=== PATIENT | female | born 1955 | race African-American/Black ===

== ENCOUNTER 2016-06-11 03:15 | Observation (INO) | payer MEDICAID ==
[~2016-06-11] VITALS: Ht 152.4 cm; Wt 95.7 kg
[~2016-06-11 03:15] MED LIST: ASPI-1035 PO; NITR0.4T3 SL
[2016-06-11] MEDS ORDERED: MORPHINE SULFATE 4 MG/ML CPJ (NOT FOR IM USE) IV STA (04:43)
[2016-06-11] MEDS ORDERED: ONDANSETRON HCL 4MG/2ML VIAL IV STA (04:43)
[2016-06-11] MEDS ORDERED: ASPIRIN 81MG TABLET PO ONE (04:45)
[2016-06-11] MEDS ORDERED: NITROGLYCERIN OINT 1GM/INCH UDPKT TD ONE (04:45)
[2016-06-11 04:59] LABS: EOSINOPHILS % 1.5 % (0.0-5.0); HEMATOCRIT. 34.4 % (36.0-48.0); HEMOGLOBIN. 11.2 g/dL (12.0-16.0); LYMPHOCYTES % 49.2 % (20.0-50.0); MEAN CORPUSCULAR HGB CONC 32.4 g/dL (31.0-37.0); MEAN CORPUSCULAR VOLUME 86.2 fL (81.0-99.0); MEAN PLATELET VOLUME 7.5 fl (7.4-10.4); MONOCYTES % 5.4 % (2.0-8.0); NEUTROPHILS % 42.9 % (40.0-76.0); PLATELET 216 x1000/uL (130-400); RED BLOOD CELL COUNT 3.99 mill/uL (4.2-5.4); RED CELL DISTRIBUTION WIDTH 14.6 % (11.6-14.6); WHITE BLOOD COUNT 6.1 x1000/uL (4.5-11.0)
[2016-06-11 05:14] LABS: ALANINE AMINOTRANSFERASE 15 IU/L (13-61); ALBUMIN 3.5 g/dL (3.4-5.0); ANION GAP 10; CALCIUM 8.2 mg/dL (8.5-10.1); CARBON DIOXIDE 31 mEq/L (21-32); CHLORIDE 104 mEq/L (98-107); INDEX HEMOLYSI 1 (1-3); INDEX ICTERIC 1 (1-4); INDEX LIPEMIC 1 (1-3); TROPONIN I < 0.02 ng/mL (0.00-0.04); UREA NITROGEN BLOOD 12 mg/dL (7-21); eGFR > 60 mL/min (>60)
[2016-06-11 08:40] VITALS: BP 94/64
[2016-06-11 10:00] VITALS: BP 94/64
[2016-06-11] MEDS ORDERED: HYDR-523 PO (11:54)
[2016-06-11 12:00] VITALS: BP 98/68
[2016-06-11] MEDS ORDERED: ALBU6.7H INH (12:00)
[2016-06-11 16:00] VITALS: BP 111/67
[2016-06-11] MEDS ORDERED: MORPHINE SULFATE 2 MG/ML CPJ (NOT FOR IM USE) IV PRN (17:30)
[2016-06-11] MEDS ORDERED: ACETAMINOPHEN 650MG/20.3ML UDC PO PRN (17:30)
[2016-06-11] MEDS ORDERED: SODIUM CHLORIDE 0.9% 1,000 ML IV SCH (18:00)
[2016-06-11 20:00] VITALS: BP 103/65
[2016-06-11] MEDS ORDERED: LEVOFLOXACIN 500MG PREMIX 100 ML IV SCH (20:00)
[2016-06-11] MEDS: IPRATROPIUM/ALBUTEROL 0.5-3(2.5)MG/3ML NEB HHN SCH (20:19)
[2016-06-11] MEDS: PANTOPRAZOLE 40MG DR TABLET PO SCH (21:40)
[2016-06-11] MEDS ORDERED: POTASSIUM CHLORIDE 20MEQ TABLET SR PO NR (21:45)
[2016-06-11] MEDS: ENOXAPARIN 30MG/0.3ML SYR SUBCUT SCH (22:06)
[2016-06-12] VITALS: BP 100/68
[2016-06-12] MEDS: IPRATROPIUM/ALBUTEROL 0.5-3(2.5)MG/3ML NEB HHN SCH ×3 (00:27→08:29)
[2016-06-12 03:05] LABS: *AMPHETAMINES SCREEN URINE NEGATIVE (NEGATIVE); *BARBITURATES SCREEN URINE NEGATIVE (NEGATIVE); *BENZODIAZEPINES SCREEN URINE NEGATIVE (NEGATIVE); *COCAINE SCREEN URINE NEGATIVE (NEGATIVE); CANNABINOID URINE SCREEN NEGATIVE (NEGATIVE); ECSTASY MDMA SCREEN URINE NEGATIVE (NEGATIVE); METHADONE URINE SCREEN NEGATIVE (NEGATIVE); OPIATES URINE SCREEN PRESUMTIVE POSITIVE (NEGATIVE); PHENCYCLIDINE URINE SCREEN NEGATIVE (NEGATIVE)
[2016-06-12 04:00] VITALS: BP 105/60
[2016-06-12] MEDS: PANTOPRAZOLE 40MG DR TABLET PO SCH (06:04)
[2016-06-12 06:10] LABS: ALANINE AMINOTRANSFERASE 12 IU/L (13-61); ALBUMIN 2.9 g/dL (3.4-5.0); ANION GAP 15; CALCIUM 8.1 mg/dL (8.5-10.1); CARBON DIOXIDE 26 mEq/L (21-32); CHLORIDE 107 mEq/L (98-107); INDEX HEMOLYSI 1 (1-3); INDEX ICTERIC 1 (1-4); INDEX LIPEMIC 1 (1-3); TRIGLYCERIDE 44 mg/dL (0-150); UREA NITROGEN BLOOD 9 mg/dL (7-21); eGFR > 60 mL/min (>60)
[2016-06-12 06:19] LABS: HDL CHOLESTEROL 98 mg/dL (40-59); LDL CHOLESTEROL 75 mg/dL (5-100)
[2016-06-12 08:00] VITALS: BP 91/43
[2016-06-12] MEDS ORDERED: PANTOPRAZOLE SODIUM 40 MG/VIAL IV SCH (09:00)
[2016-06-12] MEDS ORDERED: ASPIRIN 81MG TABLET PO SCH (09:00)
[2016-06-12] MEDS: ENOXAPARIN 30MG/0.3ML SYR SUBCUT SCH (09:19)
[2016-06-12 09:56] VITALS: BP 98/50
== END 2016-06-12 10:38 | disposition home or self-care (01) ==
LOC: ER 03:38 → 5WST 05:12 → INTOOBSV 05:12
PROVIDERS: ADMIT Internal Medicine; ATTEND Internal Medicine
DX: R07.89 Other chest pain (principal); I10 Essential (primary) hypertension; E66.9 Obesity, unspecified; I25.119 Atherosclerotic heart disease of native coronary artery with unspecified angina pectoris; I24.9 Acute ischemic heart disease, unspecified; J45.909 Unspecified asthma, uncomplicated; K21.9 Gastro-esophageal reflux disease without esophagitis; Z86.73 Personal history of transient ischemic attack (TIA), and cerebral infarction without residual deficits; Z98.84 Bariatric surgery status
CPT/HCPCS: 36415; 71010; 80053; 80061; 80305; 84443; 84484; 85025; 93005; 96361; 96365; 96372; 96375; 96376; 99285; G0378; J1650; J1956; J2270; J2405; J7030; 96374; J7620

== ENCOUNTER 2018-04-20 10:59 | Inpatient (IN) | payer MEDICAID, MEDICARE ==
[~2018-04-20] VITALS: Ht 152.4 cm; Wt 83.9 kg
[~2018-04-20 10:59] MED LIST changes: +ALBU6.7H INH; -ASPI-1035 PO; +ASPI-1159 PO; +HYDR-523 PO; -NITR0.4T3 SL; +NITR0.4T49 SL
[2018-04-20] MEDS ORDERED: ASPIRIN 325MG TABLET PO ONE (12:00)
[2018-04-20 12:54] LABS: BASOPHILS % 0.3 % (0.0-2.0); EOSINOPHILS % 1.5 % (0.0-5.0); HEMATOCRIT. 33.6 % (36.0-48.0); HEMOGLOBIN. 10.9 g/dL (12.0-16.0); LYMPHOCYTES % 44.1 % (20.0-50.0); MEAN CORPUSCULAR HEMOGLOBIN 28.1 pg (28.0-32.0); MEAN CORPUSCULAR VOLUME 86.7 fL (81.0-99.0); MONOCYTES % 6.7 % (2.0-8.0); NEUTROPHILS % 47.4 % (40.0-76.0); PLATELET 200 x1000/uL (130-400); RED BLOOD CELL COUNT 3.88 mill/uL (4.2-5.4); RED CELL DISTRIBUTION WIDTH 14.8 % (11.6-14.6)
[2018-04-20 12:56] LABS: CHLORIDE 107 mEq/L (98-107)
[2018-04-20 13:00] LABS: PARTIAL THROMBOPLASTIN TIME 29.3 sec (23.4-31.0); PROTHROMBIN TIME 10.1 sec (9.1-11.1)
[2018-04-20] MEDS: NITROGLYCERIN 0.4MG TABLET SL SL PRN ×3 (15:26→16:32)
[2018-04-20 15:41] LABS: CLARITY URINE CLEAR (CLEAR); COLOR URINE YELLOW (YELLOW); KETONES URINE NEGATIVE (NEGATIVE); LEUKOCYTE ESTERASE URINE 2+ (NEGATIVE); NITRITE URINE NEGATIVE (NEGATIVE); OCCULT BLOOD URINE NEGATIVE (NEGATIVE); PROTEIN URINE NEGATIVE (NEGATIVE); SPECIFIC GRAVITY URINE 1.019 (1.005-1.030)
[2018-04-20] MEDS ORDERED: GUAIFENESIN 200MG/10ML SUGAR FREE UDC PO PRN (16:15)
[2018-04-20] MEDS ORDERED: NITROGLYCERIN 0.4MG TABLET SL SL PRN (16:15)
[2018-04-20] MEDS ORDERED: NA PHOS,M-B/NA PHOS,DI-BA ENEMA 118ML PR PRN (16:15)
[2018-04-20] MEDS ORDERED: LORAZEPAM 0.5MG TABLET PO PRN (16:15)
[2018-04-20] MEDS ORDERED: DOCUSATE SODIUM 100MG CAPSULE PO PRN (16:15)
[2018-04-20] MEDS ORDERED: MAGNESIUM/ALUMINUM HYDROXIDE/SIMETHICONE 30ML UDC PO PRN (16:15)
[2018-04-20] MEDS ORDERED: ACETAMINOPHEN 325MG TABLET PO PRN (16:15)
[2018-04-20] MEDS ORDERED: HYDROCODONE/ACETAMINOPHEN 5/325MG TABLET PO PRN (16:15)
[2018-04-20] MEDS ORDERED: CLONIDINE 0.1MG TABLET PO PRN (16:15)
[2018-04-20] MEDS ORDERED: ONDANSETRON HCL 4MG/2ML INJ IV PRN (16:15)
[2018-04-20] MEDS ORDERED: DIPHENHYDRAMINE 50MG/ML VIAL IV PRN (16:15)
[2018-04-20] MEDS ORDERED: IPRATROPIUM/ALBUTEROL 0.5-3(2.5)MG/3ML NEB INH PRN (16:15)
[2018-04-20] MEDS ORDERED: ACETAMINOPHEN 650MG SUPP PR PRN (16:15)
[2018-04-20] MEDS ORDERED: POTASSIUM CHLORIDE 20MEQ TABLET SR PO NR (19:45)
[2018-04-20 22:15] VITALS: BP 123/67
[2018-04-20 22:23] VITALS: BP 123/67
[2018-04-21] MEDS ORDERED: DEXT 5%/0.45% NACL 1000ML 1,000 ML IV SCH
[2018-04-21] MEDS ORDERED: DIAZ5TAB PO (00:03)
[2018-04-21] MEDS ORDERED: CARI250T PO (00:03)
[2018-04-21 02:00] LABS: CREATINE KINASE 107 IU/L (26-192)
[2018-04-21 02:01] LABS: CREATINE KINASE MB FRACTION < 1.0 ng/mL (0.5-3.6)
[2018-04-21 04:00] VITALS: BP 117/64
[2018-04-21 07:02] LABS: BASOPHILS % 0.3 % (0.0-2.0); HEMATOCRIT. 32.5 % (36.0-48.0); HEMOGLOBIN. 10.7 g/dL (12.0-16.0); LYMPHOCYTES % 53.3 % (20.0-50.0); MEAN CORPUSCULAR HEMOGLOBIN 28.5 pg (28.0-32.0); MEAN CORPUSCULAR VOLUME 86.7 fL (81.0-99.0); MEAN PLATELET VOLUME 8.2 fl (7.4-10.4); NEUTROPHILS % 34.4 % (40.0-76.0); PLATELET 190 x1000/uL (130-400); RED BLOOD CELL COUNT 3.74 mill/uL (4.2-5.4); RED CELL DISTRIBUTION WIDTH 14.6 % (11.6-14.6)
[2018-04-21 08:00] VITALS: BP 135/79
[2018-04-21 08:03] LABS: CHLORIDE 108 mEq/L (98-107)
[2018-04-21 08:26] LABS: CREATINE KINASE 103 IU/L (26-192); HDL CHOLESTEROL 98 mg/dL (40-59)
[2018-04-21 08:27] LABS: LDL CHOLESTEROL 90 mg/dL (5-100)
[2018-04-21 08:32] LABS: CREATINE KINASE MB FRACTION < 1.0 ng/mL (0.5-3.6)
[2018-04-21] MEDS ORDERED: ASPIRIN 81MG EC TABLET PO SCH (09:00)
[2018-04-21] MEDS ORDERED: AMLODIPINE 5MG TABLET PO SCH (09:00)
[2018-04-21] MEDS ORDERED: ENOXAPARIN 40MG/0.4ML SYR SUBCUT SCH (09:00)
[2018-04-21] MEDS ORDERED: REGADENOSON 0.4 MG/5 ML IV ONE ×2 (11:45→13:21)
[2018-04-21 12:00] VITALS: BP 119/65
[2018-04-21 16:00] VITALS: BP 116/69
[2018-04-21 16:41] VITALS: BP 119/72
== END 2018-04-21 18:26 | disposition home or self-care (01) | DRG 198 ==
LOC: ER 11:15 → 5WST 15:07 → SUPCPDRO 15:18 → EDBEDREQ 15:18 → EDBEDREQTM 15:18 → ENRESERV 21:37
PROVIDERS: ADMIT Internal Medicine; ATTEND Internal Medicine
DX: I25.119 Atherosclerotic heart disease of native coronary artery with unspecified angina pectoris (principal); J45.901 Unspecified asthma with (acute) exacerbation; D64.9 Anemia, unspecified; E66.9 Obesity, unspecified; M54.9 Dorsalgia, unspecified; N39.0 Urinary tract infection, site not specified; E78.5 Hyperlipidemia, unspecified; E87.6 Hypokalemia; G89.29 Other chronic pain; I10 Essential (primary) hypertension; Z68.36 Body mass index [BMI] 36.0-36.9, adult; Z86.73 Personal history of transient ischemic attack (TIA), and cerebral infarction without residual deficits; Z79.82 Long term (current) use of aspirin; Z79.899 Other long term (current) drug therapy; Z98.891 History of uterine scar from previous surgery
CPT/HCPCS: 36415; 71045; 78452; 80061; 82550; 82553; 83036; 83880; 84443; 84484; 85379; 93005; 93017; 93306; 93970; 97116; 97162; 99285; A9500; J1650; J2785

== ENCOUNTER 2020-06-09 04:45 | Emergency (ER) | payer MEDICAID, MEDICARE ==
[~2020-06-09] VITALS: Ht 160 cm; Wt 79.0 kg
[~2020-06-09 04:45] MED LIST changes: -ALBU6.7H INH; +ALBU6.7H11 INH; -ASPI-1159 PO; +ASPI-1497 PO; +CARI250T PO; +DIAZ5TAB PO
[2020-06-09] MEDS ORDERED: HYDROCODONE/ACETAMINOPHEN 5/325MG TABLET PO ONE (05:15)
[2020-06-09] MEDS ORDERED: IBUP-2028 MT (06:40)
[2020-06-09 06:51] VITALS: BP 121/8
== END 2020-06-09 07:00 | disposition home or self-care (01) ==
LOC: ER 04:45
DX: M25.561 Pain in right knee (principal); I10 Essential (primary) hypertension; I25.10 Atherosclerotic heart disease of native coronary artery without angina pectoris; Z86.73 Personal history of transient ischemic attack (TIA), and cerebral infarction without residual deficits; Z87.828 Personal history of other (healed) physical injury and trauma; Z98.890 Other specified postprocedural states; Z79.82 Long term (current) use of aspirin
CPT/HCPCS: 73562; 99283

== ENCOUNTER 2020-11-20 17:32 | Emergency (ER) | payer MEDICAID ==
[~2020-11-20] VITALS: Ht 152.4 cm; Wt 85.0 kg
[~2020-11-20 17:32] MED LIST changes: +IBUP-2028 MT
[2020-11-20 20:02] LABS: CLARITY URINE CLOUDY (CLEAR); COLOR URINE YELLOW (YELLOW); KETONES URINE TRACE (NEGATIVE); LEUKOCYTE ESTERASE URINE 3+ (NEGATIVE); NITRITE URINE NEGATIVE (NEGATIVE); OCCULT BLOOD URINE 2+ (NEGATIVE); PROTEIN URINE TRACE (NEGATIVE); SPECIFIC GRAVITY URINE 1.022 (1.005-1.030)
[2020-11-20 20:22] LABS: *AMPHETAMINES SCREEN URINE NEGATIVE (NEGATIVE)
[2020-11-20 20:23] LABS: *BARBITURATES SCREEN URINE NEGATIVE (NEGATIVE); *BENZODIAZEPINES SCREEN URINE NEGATIVE (NEGATIVE); *COCAINE SCREEN URINE NEGATIVE (NEGATIVE); METHADONE URINE SCREEN NEGATIVE (NEGATIVE); OPIATES URINE SCREEN NEGATIVE (NEGATIVE); PHENCYCLIDINE URINE SCREEN NEGATIVE (NEGATIVE)
[2020-11-20 20:24] LABS: CANNABINOID URINE SCREEN NEGATIVE (NEGATIVE)
[2020-11-20] MEDS ORDERED: NITROFURANTOIN 100MG M/M CAPSULE PO ONE (20:30)
[2020-11-20] MEDS ORDERED: BACL-141 MT (20:52)
[2020-11-20] MEDS ORDERED: NITR-87 MT (20:52)
[2020-11-20 21:03] VITALS: BP 141/84
[2020-11-20] MEDS ORDERED: DICL100G31 TP (21:05)
== END 2020-11-20 21:03 | disposition home or self-care (01) ==
LOC: ER 17:32
DX: R25.2 Cramp and spasm (principal); N39.0 Urinary tract infection, site not specified; I11.9 Hypertensive heart disease without heart failure; J45.909 Unspecified asthma, uncomplicated; Z86.73 Personal history of transient ischemic attack (TIA), and cerebral infarction without residual deficits; Z98.84 Bariatric surgery status; Z79.82 Long term (current) use of aspirin
CPT/HCPCS: 80305; 81003; 87077; 87186; 93970; 99283

== ENCOUNTER 2021-11-03 01:24 | Emergency (ER) | payer MEDICAID ==
[~2021-11-03] VITALS: Ht 152.4 cm; Wt 85.9 kg
[~2021-11-03 01:24] MED LIST changes: -ALBU6.7H11 INH; +ALBU6.7H15 INH; +BACL-141 MT; +DICL100G31 TP; +NITR-87 MT
[2021-11-03 01:33] VITALS: BP 143/76
[2021-11-03 04:39] LABS: BASOPHILS % 0.3 % (0.0-2.0); EOSINOPHILS % 1.9 % (0.0-5.0); HEMOGLOBIN. 11.4 g/dL (12.0-16.0); LYMPHOCYTES % 43.5 % (20.0-50.0); MEAN CORPUSCULAR HEMOGLOBIN 27.8 pg (28.0-32.0); MEAN CORPUSCULAR VOLUME 85.6 fL (81.0-99.0); NEUTROPHILS % 46.3 % (40.0-76.0); PLATELET 242 x1000/uL (130-400); RED BLOOD CELL COUNT 4.08 mill/uL (4.2-5.4); RED CELL DISTRIBUTION WIDTH 15.2 % (11.6-14.6)
[2021-11-03 05:01] LABS: CHLORIDE 106 mEq/L (98-107)
[2021-11-03] MEDS ORDERED: ACET-2708 MT (06:26)
== END 2021-11-03 06:33 | disposition home or self-care (01) ==
LOC: ER 01:24
DX: M79.605 Pain in left leg (principal); I10 Essential (primary) hypertension; J45.909 Unspecified asthma, uncomplicated; Z79.82 Long term (current) use of aspirin; Z86.73 Personal history of transient ischemic attack (TIA), and cerebral infarction without residual deficits; Z98.890 Other specified postprocedural states; Z79.899 Other long term (current) drug therapy
CPT/HCPCS: 36415; 71045; 80048; 83880; 84484; 85025; 93005; 93970; 99285

== ENCOUNTER 2023-10-05 22:32 | Inpatient (IN) | payer MEDICARE, MEDICAID ==
[~2023-10-05] VITALS: Ht 152.4 cm; Wt 86.2 kg
[~2023-10-05 22:32] MED LIST changes: +ACET-2708 MT; +AMLO10TA80 PO; +CLOP-31 PO; -DICL100G31 TP; +DICL100G58 TP; +LIP40 PO
[2023-10-05] MEDS ORDERED: CLONIDINE 0.1MG TABLET PO PRN (22:45)
[2023-10-05] MEDS ORDERED: ACETAMINOPHEN 325MG TABLET PO PRN (22:45)
[2023-10-05 23:00] VITALS: BP 112/79; PULSE 100; RESP 18; TEMP 96.9
[2023-10-06 06:00] VITALS: BP 116/71; PULSE 74; RESP 18; TEMP 97.6
[2023-10-06 06:42] LABS: CARBON DIOXIDE 24 mEq/L (21-32); CHLORIDE 102 mEq/L (98-107); POTASSIUM 3.6 mEq/L (3.5-5.1); SODIUM 135 mEq/L (136-145)
[2023-10-06 06:43] LABS: CALCIUM 9.3 mg/dL (8.7-10.4)
[2023-10-06 06:47] LABS: CREATININE 0.8 mg/dL (0.6-1.0); GLUCOSE 96 mg/dL (70-105)
[2023-10-06 06:48] LABS: UREA NITROGEN BLOOD 16 mg/dL (9-23)
[2023-10-06 06:49] LABS: ALANINE AMINOTRANSFERASE 46 IU/L (10-49); ALBUMIN 4.1 g/dL (3.2-4.8); ASPARTATE AMINOTRANSFERASE 91 IU/L (<34)
[2023-10-06 06:50] LABS: BILIRUBIN TOTAL 0.6 mg/dL (0.1-1.0); PROTEIN TOTAL 7.4 g/dL (6.0-8.3)
[2023-10-06 07:00] LABS: BASOPHILS % 0.4 % (0.0-2.0); HEMATOCRIT. 37.2 % (36.0-48.0); HEMOGLOBIN. 12.7 g/dL (12.0-16.0); LYMPHOCYTES % 33.5 % (20.0-50.0); MEAN CORPUSCULAR HEMOGLOBIN 29.4 pg (28.0-32.0); MEAN CORPUSCULAR HGB CONC 34.2 g/dL (31.0-37.0); MEAN CORPUSCULAR VOLUME 85.9 fL (81.0-99.0); MEAN PLATELET VOLUME 8.2 fl (7.4-10.4); MONOCYTES % 11.9 % (2.0-8.0); NEUTROPHILS % 52.2 % (40.0-76.0); PLATELET 222 x1000/uL (130-400); RED BLOOD CELL COUNT 4.33 mill/uL (4.2-5.4); RED CELL DISTRIBUTION WIDTH 14.6 % (11.6-14.6)
[2023-10-06 08:00] VITALS: BP 123/76; PULSE 89; RESP 18; TEMP 97.3
[2023-10-06] MEDS: GUAIFENESIN 600MG ER TABLET PO SCH (08:56)
[2023-10-06] MEDS: ASPIRIN 81MG TABLET PO SCH (08:56)
[2023-10-06] MEDS: CLOPIDOGREL 75MG TABLET PO SCH (08:57)
[2023-10-06] MEDS: AMLODIPINE 10MG TABLET PO SCH (08:57)
[2023-10-06] MEDS ORDERED: ENOXAPARIN 40MG/0.4ML SYR SUBCUT SCH (09:00)
[2023-10-06 20:00] VITALS: BP 120/73; PULSE 67; RESP 18; TEMP 100
[2023-10-06] MEDS: ATORVASTATIN CALCIUM 40MG TABLET PO SCH (20:55)
[2023-10-07] MEDS: CALCIUM CARBONATE 500MG TABLET CHEW PO PRN (00:24)
[2023-10-07 08:00] VITALS: BP 111/87; PULSE 100; RESP 18; TEMP 98.6
[2023-10-07] MEDS: SULFACETAMIDE SODIUM 10% OPHTH DROPS 15ML LEFTEYE SCH (16:23)
[2023-10-07 20:00] VITALS: BP 116/77; PULSE 104; RESP 19; TEMP 97.5
[2023-10-08 07:42] VITALS: BP 135/84; PULSE 88; RESP 18; TEMP 98.3
[2023-10-08 20:00] VITALS: BP 110/74; PULSE 98; RESP 18; TEMP 97.2
[2023-10-09 08:00] VITALS: BP 110/74; PULSE 98; RESP 18; TEMP 97.2
[2023-10-09 20:00] VITALS: BP_SYST 119; BP_SYST 148; BP_DIAS 82; BP_DIAS 89; PULSE 73; PULSE 80; RESP 18; RESP 19; TEMP 97.3; TEMP 98.4
[2023-10-10 06:45] LABS: BASOPHILS % 0.5 % (0.0-2.0); EOSINOPHILS % 2.3 % (0.0-5.0); HEMATOCRIT. 36.6 % (36.0-48.0); HEMOGLOBIN. 11.8 g/dL (12.0-16.0); LYMPHOCYTES % 36.3 % (20.0-50.0); MEAN CORPUSCULAR HGB CONC 32.2 g/dL (31.0-37.0); MEAN CORPUSCULAR VOLUME 86.8 fL (81.0-99.0); MEAN PLATELET VOLUME 8.1 fl (7.4-10.4); MONOCYTES % 9.8 % (2.0-8.0); NEUTROPHILS % 51.1 % (40.0-76.0); PLATELET 259 x1000/uL (130-400); RED BLOOD CELL COUNT 4.22 mill/uL (4.2-5.4); RED CELL DISTRIBUTION WIDTH 14.2 % (11.6-14.6); WHITE BLOOD COUNT 5.9 x1000/uL (4.5-11.0)
[2023-10-10 06:47] LABS: CARBON DIOXIDE 24 mEq/L (21-32); CHLORIDE 106 mEq/L (98-107); POTASSIUM 3.9 mEq/L (3.5-5.1); SODIUM 138 mEq/L (136-145)
[2023-10-10 06:48] LABS: CALCIUM 9.3 mg/dL (8.7-10.4)
[2023-10-10 06:53] LABS: CREATININE 0.7 mg/dL (0.6-1.0); GLUCOSE 93 mg/dL (70-105); UREA NITROGEN BLOOD 15 mg/dL (9-23)
[2023-10-10 08:00] VITALS: BP 107/66; PULSE 91; RESP 18; TEMP 97.7
[2023-10-10] MEDS: DOCUSATE SODIUM 100MG CAPSULE PO PRN (08:24)
[2023-10-10] MEDS: ACETAMINOPHEN 325MG TABLET PO PRN (08:24)
[2023-10-10 20:00] VITALS: BP 100/68; PULSE 93; RESP 20; TEMP 97.2
[2023-10-11 08:00] VITALS: BP 112/75; PULSE 89; RESP 18; TEMP 97.7
[2023-10-11 20:00] VITALS: BP 123/72; PULSE 88; RESP 20; TEMP 94.4
[2023-10-12 08:00] VITALS: BP 111/69; PULSE 89; RESP 20; TEMP 98.5
[2023-10-12 20:00] VITALS: BP 120/70; PULSE 98; RESP 20; TEMP 97.7
[2023-10-13 08:00] VITALS: BP 115/70; PULSE 84; RESP 20; TEMP 97.3
[2023-10-13 20:00] VITALS: BP 122/86; PULSE 96; RESP 18; TEMP 99
[2023-10-14 08:00] VITALS: BP 103/63; PULSE 82; RESP 16; TEMP 97.4
[2023-10-14 20:00] VITALS: BP 116/75; PULSE 90; RESP 18; TEMP 98.1
[2023-10-15 08:00] VITALS: BP 127/79; PULSE 87; RESP 18; TEMP 96.5
[2023-10-15] MEDS ORDERED: CLOP-31 PO (12:53)
[2023-10-15 13:25] VITALS: BP 127/79; PULSE 87; TEMP 96.5; O2SAT 98
== END 2023-10-15 13:55 | disposition home health service (06) | DRG 65 ==
PROVIDERS: ADMIT Psychiatry & Neurology Neurology; ATTEND Internal Medicine
DX: I63.9 Cerebral infarction, unspecified (principal); I69.354 Hemiplegia and hemiparesis following cerebral infarction affecting left non-dominant side; I10 Essential (primary) hypertension; D64.9 Anemia, unspecified; E66.01 Morbid (severe) obesity due to excess calories; Z68.37 Body mass index [BMI] 37.0-37.9, adult; K30 Functional dyspepsia; M13.88 Other specified arthritis, other site; F06.34 Mood disorder due to known physiological condition with mixed features; R26.2 Difficulty in walking, not elsewhere classified; J40 Bronchitis, not specified as acute or chronic; K59.00 Constipation, unspecified; I65.01 Occlusion and stenosis of right vertebral artery; Z79.82 Long term (current) use of aspirin; Z79.899 Other long term (current) drug therapy; Z91.81 History of falling; Z79.02 Long term (current) use of antithrombotics/antiplatelets; Z79.01 Long term (current) use of anticoagulants
CPT/HCPCS: 36415; 80048; 80053; 85025; 92523; 92610; 97110; 97112; 97116; 97150; 97162; 97166; 97530; 97535

== ENCOUNTER 2024-03-30 20:49 | Emergency (ER) | payer MEDICARE, MEDICAID ==
[~2024-03-30] VITALS: Ht 152.4 cm; Wt 96.0 kg
[~2024-03-30 20:49] MED LIST changes: -ACET-2708 MT; -BACL-141 MT; -DIAZ5TAB PO; -HYDR-523 PO; -IBUP-2028 MT; -NITR-87 MT
[2024-03-30 20:52] VITALS: O2SAT 99
[2024-03-30 20:55] VITALS: BP 153/97; PULSE 97; RESP 16; O2SAT 99
[2024-03-31] MEDS ORDERED: ACET-2708 MT (02:39)
[2024-03-31 03:20] VITALS: TEMP 98.3
[2024-03-31] MEDS: ACETAMINOPHEN 500MG TABLET PO ONE (03:20)
[2024-03-31] MEDS: ACETAMINOPHEN 500MG TABLET PO NR (03:20)
== END 2024-03-31 03:22 | disposition home or self-care (01) ==
LOC: ER 20:49
DX: S80.12XA Contusion of left lower leg, initial encounter (principal); J45.909 Unspecified asthma, uncomplicated; I10 Essential (primary) hypertension; Z79.899 Other long term (current) drug therapy; Z98.84 Bariatric surgery status; Z86.73 Personal history of transient ischemic attack (TIA), and cerebral infarction without residual deficits; Z98.890 Other specified postprocedural states; W18.39XA Other fall on same level, initial encounter; Y93.89 Activity, other specified; Y92.89 Other specified places as the place of occurrence of the external cause; Y99.8 Other external cause status
CPT/HCPCS: 73562; 73700; 99284

== ENCOUNTER 2025-01-23 17:25 | Inpatient (IN) | payer BC, MEDICAID, MEDICARE ==
[~2025-01-23] VITALS: Ht 152.4 cm; Wt 86.2 kg
[~2025-01-23 17:25] MED LIST changes: +ACET-2708 MT
[2025-01-23 17:34] VITALS: O2SAT 100
[2025-01-23 18:29] LABS: CLARITY URINE CLEAR (CLEAR); COLOR URINE DARK YELLOW (YELLOW); GLUCOSE URINE NEGATIVE (NEGATIVE); KETONES URINE TRACE (NEGATIVE); LEUKOCYTE ESTERASE URINE 1+ (NEGATIVE); NITRITE URINE NEGATIVE (NEGATIVE); OCCULT BLOOD URINE NEGATIVE (NEGATIVE); PH URINE 6.0 (4.5-8.0); PROTEIN URINE NEGATIVE (NEGATIVE); SPECIFIC GRAVITY URINE 1.027 (1.005-1.030); UROBILINOGEN URINE 1.0 E.U./dL (0.2-1.0)
[2025-01-23] MEDS: SODIUM CHLORIDE 0.9% 1,000 ML IV ONE (18:30)
[2025-01-23 18:31] LABS: BASOPHILS % 0.3 % (0.0-2.0); EOSINOPHILS % 1.7 % (0.0-5.0); HEMATOCRIT. 36.1 % (36.0-48.0); HEMOGLOBIN. 11.8 g/dL (12.0-16.0); LYMPHOCYTES % 35.0 % (20.0-50.0); MEAN PLATELET VOLUME 8.2 fl (7.4-10.4); MONOCYTES % 7.1 % (2.0-8.0); NEUTROPHILS % 55.9 % (40.0-76.0); PLATELET 184 x1000/uL (130-400); RED BLOOD CELL COUNT 4.21 mill/uL (4.2-5.4); RED CELL DISTRIBUTION WIDTH 14.6 % (11.6-14.6)
[2025-01-23] MEDS: ACETAMINOPHEN 500MG TABLET PO ONE (18:34)
[2025-01-23] MEDS: ONDANSETRON HCL 4MG/2ML INJ IV ONE (18:35)
[2025-01-23] MEDS: KETOROLAC 15MG/ML VIAL IV ONE (18:35)
[2025-01-23 18:46] LABS: CREATININE 0.7 mg/dL (0.6-1.0)
[2025-01-23 18:47] LABS: TROPONIN I HIGH SENSITIVITY < 4 ng/L (3.0-34); UREA NITROGEN BLOOD 6 mg/dL (9-23)
[2025-01-23 18:48] LABS: ASPARTATE AMINOTRANSFERASE 25 IU/L (<34)
[2025-01-23 18:49] LABS: BILIRUBIN DIRECT 0.2 mg/dL (<=3.0); BILIRUBIN TOTAL 0.7 mg/dL (0.1-1.0); PROTEIN TOTAL 7.9 g/dL (6.0-8.3)
[2025-01-23 18:51] LABS: BACTERIA URINE TRACE; RBC URINE 0-2 /hpf (0-2); SQUAMOUS EPITHELIAL CELL URINE 1+ /lpf (RARE/1+)
[2025-01-23] MEDS: SODIUM CHLORIDE 0.9% (SEPSIS BOLUS) IV ONE (20:26)
[2025-01-23] MEDS: CEFTRIAXONE 1GM/50ML 50 ML IV ONE (20:44)
[2025-01-23] MEDS: AZITHROMYCIN 500MG/250ML 250 ML IV ONE (21:30)
[2025-01-23 23:05] LABS: INR 1.0
[2025-01-23 23:08] LABS: TROPONIN I HIGH SENSITIVITY < 4 ng/L (3.0-34)
[2025-01-24] VITALS: BP 124/70; PULSE 79; RESP 18; TEMP 35.8064
[2025-01-24] MEDS ORDERED: CLONIDINE 0.1MG TABLET PO PRN
[2025-01-24] MEDS ORDERED: ONDANSETRON HCL 4MG/2ML INJ IV PRN
[2025-01-24] MEDS ORDERED: ZOLPIDEM TARTRATE 5MG TABLET PO PRN
[2025-01-24] MEDS ORDERED: MAGNESIUM/ALUMINUM HYDROXIDE/SIMETHICONE 30ML UDC PO PRN
[2025-01-24] MEDS ORDERED: NALOXONE HCL 0.4MG/ML VIAL IV PRN (00:15)
[2025-01-24] MEDS: SODIUM CHLORIDE 0.9% 1,000 ML IV SCH (01:09)
[2025-01-24] MEDS: HYDROCODONE/ACETAMINOPHEN 5/325MG TABLET PO PRN (01:18)
[2025-01-24 08:00] VITALS: BP 118/64; PULSE 98; RESP 18; TEMP 36.5; O2SAT 97
[2025-01-24 08:03] LABS: BASOPHILS % 0.3 % (0.0-2.0); EOSINOPHILS % 2.3 % (0.0-5.0); HEMATOCRIT. 30.0 % (36.0-48.0); HEMOGLOBIN. 9.8 g/dL (12.0-16.0); LYMPHOCYTES % 44.9 % (20.0-50.0); MEAN PLATELET VOLUME 8.9 fl (7.4-10.4); MONOCYTES % 6.9 % (2.0-8.0); NEUTROPHILS % 45.6 % (40.0-76.0); PLATELET 154 x1000/uL (130-400); RED BLOOD CELL COUNT 3.52 mill/uL (4.2-5.4); RED CELL DISTRIBUTION WIDTH 14.3 % (11.6-14.6)
[2025-01-24] MEDS: PANTOPRAZOLE SODIUM 40 MG/VIAL IV SCH (09:02)
[2025-01-24] MEDS: ENOXAPARIN 30MG/0.3ML SYR SUBCUT SCH (09:03)
[2025-01-24 09:13] LABS: *AMPHETAMINES SCREEN URINE NEGATIVE (NEGATIVE); *BARBITURATES SCREEN URINE NEGATIVE (NEGATIVE); *BENZODIAZEPINES SCREEN URINE NEGATIVE (NEGATIVE); *COCAINE SCREEN URINE NEGATIVE (NEGATIVE); METHADONE URINE SCREEN NEGATIVE (NEGATIVE); OPIATES URINE SCREEN NEGATIVE (NEGATIVE); PHENCYCLIDINE URINE SCREEN NEGATIVE (NEGATIVE)
[2025-01-24 09:14] LABS: CANNABINOID URINE SCREEN NEGATIVE (NEGATIVE); ECSTASY MDMA SCREEN URINE NEGATIVE (NEGATIVE)
[2025-01-24 11:31] LABS: VITAMIN B12 SERUM 1086 pg/mL (211-911)
[2025-01-24 12:00] VITALS: BP 117/64; PULSE 60; RESP 18; TEMP 36.2; O2SAT 99
[2025-01-24 16:00] VITALS: BP 127/73; PULSE 79; RESP 18; TEMP 36.3; O2SAT 100
[2025-01-24] MEDS: ACETAMINOPHEN 325MG TABLET PO PRN (16:56)
[2025-01-24 20:00] VITALS: BP 116/65; PULSE 82; RESP 18; TEMP 36.3; O2SAT 100
[2025-01-24] MEDS: ATORVASTATIN CALCIUM 40MG TABLET PO SCH (22:27)
[2025-01-24] MEDS: CEFTRIAXONE 1GM/50ML 50 ML IV SCH (22:28)
[2025-01-24] MEDS: AZITHROMYCIN 500MG/250ML 250 ML IV SCH (23:31)
[2025-01-25] VITALS: BP 103/54; PULSE 85; RESP 18; TEMP 36.2
[2025-01-25 04:17] VITALS: BP 124/61; PULSE 71; RESP 18; TEMP 36.4; O2SAT 100
[2025-01-25 08:00] VITALS: BP 125/70; PULSE 80; RESP 17; TEMP 36.6; O2SAT 99
[2025-01-25] MEDS: CLOPIDOGREL 75MG TABLET PO SCH (09:09)
[2025-01-25] MEDS: ASPIRIN 81MG EC TABLET PO SCH (09:10)
[2025-01-25 09:11] LABS: BASOPHILS % 0.4 % (0.0-2.0); EOSINOPHILS % 3.6 % (0.0-5.0); HEMATOCRIT. 32.9 % (36.0-48.0); HEMOGLOBIN. 10.8 g/dL (12.0-16.0); LYMPHOCYTES % 45.1 % (20.0-50.0); MEAN PLATELET VOLUME 8.8 fl (7.4-10.4); MONOCYTES % 6.9 % (2.0-8.0); NEUTROPHILS % 44.0 % (40.0-76.0); PLATELET 198 x1000/uL (130-400); RED BLOOD CELL COUNT 3.88 mill/uL (4.2-5.4); RED CELL DISTRIBUTION WIDTH 14.4 % (11.6-14.6)
[2025-01-25 12:00] VITALS: BP 127/72; PULSE 79; RESP 18; TEMP 36.4; O2SAT 98
[2025-01-25] MEDS ORDERED: LEVO-65 MT (12:19)
[2025-01-25 13:23] VITALS: BP 131/69; PULSE 75; RESP 18; TEMP 98.1
== END 2025-01-25 15:12 | disposition home or self-care (01) | DRG 689 ==
LOC: ER 17:25 → EDBEDREQTM 21:20 → EDBEDREQ 21:20 → 4WST 01-24 00:01
PROVIDERS: ADMIT Internal Medicine; ATTEND Internal Medicine
DX: N39.0 Urinary tract infection, site not specified (principal); J18.9 Pneumonia, unspecified organism; I69.354 Hemiplegia and hemiparesis following cerebral infarction affecting left non-dominant side; D64.9 Anemia, unspecified; I10 Essential (primary) hypertension; J45.909 Unspecified asthma, uncomplicated; Z79.82 Long term (current) use of aspirin; Z79.899 Other long term (current) drug therapy; Z98.84 Bariatric surgery status
CPT/HCPCS: 36415; 71045; 74176; 76770; 80048; 80076; 80305; 81003; 82607; 82728; 83036; 83540; 83550; 83605; 84145; 84443; 84484; 85025; 93005; 93970; 96374; 96375; 97162; 99285; A4606; J0456; J0696; J1650; J1885; J2405; J2470; J7030